=== PATIENT | female | born 1935 | race Caucasian/White ===

== ENCOUNTER 2021-05-22 12:46 | Inpatient (IN) | payer MEDICARE, SELFPAY ==
[2021-05-22] VITALS (48 sets, daily range): BP systolic 58–162; BP diastolic 13–91; PULSE 54–153; RESP 10–37; TEMP 34.1–36.2; O2SAT 71–100
--- NOTE | ~2021-05-22 | XR_ITS ---
XR abdomen NG/feed tube insert INDICATION: Evaluate NG tube position. TECHNIQUE: Limited KUB perform for evaluating NG tube . COMPARISON: No prior studies for comparison. FINDINGS: NG tube tip in the stomach. Visualized bowel gas pattern is unremarkable. IMPRESSION: 1: NG tube tip in the stomach. Reviewed, dictated and finalized at location A.
--- NOTE | ~2021-05-22 | CT_ITS ---
EXAMINATION: CTA chest PE abdomen pel DATE: 05/22/2021 14:54 CDT INDICATION: Chest and back pain TECHNIQUE: Computed tomography (CT) of the chest, abdomen, and pelvis was performed with 100 cc Omnip aque 350 intravenous contrast. The dose-length product was 314.13 mGy-cm. Automated exposure control and iterative reconstruction technique were employed. COMPARISON: None FINDINGS: CHEST CT: Study is technically adequate without evidence for pulmonary embolism. Heart size normal. Small bilat eral pleural effusions. No thoracic lymphadenopathy. There is atherosclerosis of the aorta without an eurysm. No endobronchial lesions. There is dependent as well as right middle lobe and lingular atelec tasis. No focal pneumonia. Cardiomegaly. ABDOMEN/PELVIS CT: The liver is diffusely heterogeneous without discrete mass. Gallbladder is present. Small amount of a scites. No free air. Nonobstructive bowel gas pattern. No lymphadenopathy. No evidence for abdominal aortic dissection or aneurysm. Mild wedge compression deformity of a midthoracic vertebra. Mild thora cic spondylosis. Accentuated thoracic kyphosis. IMPRESSION: 1. No evidence for pulmonary embolism. 2: Small pleural effusions with dependent atelectasis. 3: Small volume of ascites. Heterogeneous liver has nonspecific. Reviewed, dictated and finalized at location A.
--- NOTE | ~2021-05-22 | XR_ITS ---
EXAMINATION: XR chest port-a-cath/central EXAM DATE: 05/22/2021 23:11 INDICATION: Central line placement. TECHNIQUE: Portable AP frontal chest x-ray was obtained. Comparison is made to prior examination from 05/22/2021. FINDINGS: There is a new right-sided central line, tip projecting over the SVC. The endotracheal tub e appears to have somewhat retracted compared to prior study, is about 8 cm above the lia (previou sly about 5). There is a nasogastric tube seen with tip collimated off the study, but below the left hemidiaphragm. There is diffuse right lung and left lower lobe edema and/or pneumonia, mild interval progression. P robable small bilateral pleural effusions. Interval development of small right apical pneumothorax, about 2.0 cm between the pleural reflections at the apex. Cardiomediastinal silhouette is normal. T he bones and soft tissues are unremarkable. IMPRESSION: 1. Endotracheal tube 8 cm above the lia, could be safely advanced 3 cm. 2. New small right apical pneumothorax. 3. Diffuse edema and/or pneumonia, some progression. STAT Rad radiologist phoned, discussed this case with clinician as per documentation in their report, which was faxed and scanned into PACS with this exam. I called to discuss findings with ICU at 05/23 08:27 CDT. Reviewed, dictated and finalized at location A. IMPRESSION: 1. Endotracheal tube 8 cm above the lia, could be safely advanced 3 cm. 2. New small right apical pneumothorax. 3. Diffuse edema and/or pneumonia, some progression. STAT Rad radiologist phoned, discussed this case with clinician as per document ation in their report, which was faxed and scanned into PACS with this exam. I called to discuss findings with ICU at 05/23/2021 08:27 CDT.
--- NOTE | ~2021-05-22 | XR_ITS ---
XR chest ET placement 05/22/2021 15:20 Indication: Respiratory distress. Procedure: AP portable chest Comparison: CT dated 05/22/2021 Findings: Endotracheal tube tip 4.8 cm above the lia. NG tube in the stomach. Cardiomegaly. There has been interval development of pulmonary edema. Left basilar atelectasis. Small left pleural effusi on. Impression: 1: Interval development of pulmonary edema since recent CT. Reviewed, dictated and finalized at location A. Impression: 1: Interval development of pulmonary edema since recent CT.
--- NOTE | 2021-05-22 13:09 | ECG_ITS ---
Measurements Intervals [place] Rate: 152 P: [place]: 0 QRS: -13 QRSD: 132 T: 189 QT: 285 QTc: 454 Interpretive Statements ATRIAL FLUTTER/TACHYCARDIA WITH RAPID VENTRICULAR RESPONSE LEFT BUNDLE BRANCH BLOCK ABNORMAL ECG Electronically Signed On 05-22-2021 15:45:37 CDT by Alfonzo Gibbons D.O.
[2021-05-22 13:26] LABS: Basophils Percent Auto 0.4 % (0.2-1.2); Hematocrit 42.3 % (37.0-47.0); Hemoglobin 14.1 g/dL (12.0-15.0); Immature Granulocyte Absolute 0.04 K/mm3 (0.00-0.031); Immature Granulocyte Percent A 0.4 % (0-0.5); Lymphocytes Absolute Auto 1.34 K/mm3 (0.9-3.2); Lymphocytes Percent Auto 13.2 % (18.3-44.2); Mean Corpuscular HGB Conc 33.3 g/dl (32-36); Mean Corpuscular Hemoglobin 31.3 pg (26-34); Mean Platelet Volume 10.2 fl (7.4-10.4); Monocytes Absolute Auto 0.9 K/mm3 (0.1-0.6); Monocytes Percent Auto 8.9 % (2.6-8.5); Neutrophils Absolute Auto 7.8 K/mm3 (1.3-6.7); Neutrophils Percent Auto 77.1 % (45.5-73.1); Platelet Count Result 188 k/mm3 (150-375); Red Cell Distribution Width 14.9 % (11.5-14.5); White Blood Count 10.2 K/mm3 (4.5-10.0)
[2021-05-22 13:39] LABS: Anion Gap 14 mmol/L (8-16); Blood Urea Nitrogen 31 mg/dL (7-17); Calcium 9.9 mg/dL (8.4-10.2); Carbon Dioxide 20 mmol/L (22-30); Chloride 96 mmol/L (98-107); Estimated CRCL calculation 30 ml/min; Estimated Glomerular Filt Rate 60; Glucose 124 mg/dL (65-110); Potassium 5.1 mmol/L (3.4-5.0); Sodium 130 mmol/L (137-145)
[2021-05-22 13:53] LABS: NT Pro B Type Natriuretic Pept 26700 pg/mL (5-100)
[2021-05-22 13:54] LABS: Add Urine Microscopic? YES; Appearance Urine Clear (Clear); Bacteria Urine Trace /hpf; Bilirubin Urine Negative (Negative); Blood Urine Negative (Negative); Color Urine Amber (Yellow); Glucose Urine UA Negative (Negative); Hyaline Casts Urine 15-19 /lpf; Ketones Urine 1+ mg/dL (Negative); Leukocyte Esterase Ur 1+ LEU/UL (Negative); Mucus Urine Rare /lpf; Nitrate Urine Negative (Negative); Protein Urine 2+ mg/dL (Negative); Specific Grav Ur 1.026 (1.001-1.035); Squamous Epithelial Cell Urine Moderate /hpf (Few); Transitional Epi Cells Urine Rare /hpf (None Seen)
[2021-05-22] MEDS: METOPROLOL TARTRATE INJ 5 MG/5 ML VIAL IV PUSH ×2 (14:16→14:26)
[2021-05-22] MEDS: LACTATED RINGERS 1,000 ML 150 ML IV CONT (14:16)
[2021-05-22] MEDS: ASPIRIN 81 MG CHEWABLE TABLET 324 MG PO (14:17)
--- NOTE | 2021-05-22 14:19 | PC.NURSE ---
called lab and talked to Elena at 1418 added on a D dimer
[2021-05-22 14:44] LABS: D Dimer 2.13 ug/mL (<0.48)
--- NOTE | 2021-05-22 14:55 | PC.NURSE ---
ERP ordered 1mg of atropine IVP via verbal order readback due to bradycardia.
[2021-05-22 14:56] LABS: Base Excess ABG -6.3 mEq/l (+/-2.0); Carboxyhemoglobin 0.5 % THb (0-2.0); Fractional Inspired Oxygen 100 %; HCO3 ABG 13.6 mEq/l (22.0-26.0); Methemoglobin ABG 0.2 %THb (0-1.5); Oxygen Content ABG 18.9 %vol (16.0-22.0); Oxygen Saturation ABG 99.9 % (95.0-100.0); Oxyhemoglobin 98.6 % THb (90.0-100.0); PO2 ABG 421.6 mmHg (80.0-100.0); PO2 FiO2 Ratio Arterial Blood 4.22 %; Reduced Hemoglobin 0.7 %THb (0-5.0); Total Hemoglobin 12.8 g/dL (12.0-18.0)
[2021-05-22 14:57] LABS: Device NON-REBREATHER MASK; Modified Allen's Test Unable to perform; PCO2 ABG 16.4 mmHg (35.0-45.0); Site Drawn LEFT RADIAL; pH ABG 7.537 (7.350-7.450)
--- NOTE | 2021-05-22 14:57 | PC.NURSE ---
LR fluids opened at bolus rate due to hypotension and absent radial pulses. ERP aware.
--- NOTE | 2021-05-22 14:58 | PC.NURSE ---
Patient being bagged at this time, heart rate noted to be 42 and atropine given IVP at this time per Dr. Cotto.
--- NOTE | 2021-05-22 14:59 | PC.NURSE ---
Addendum entered by Alvin Beckwith RN 05/22/21 16:23: HR instead of [place] Original Note: CPR started at this time for [place] of 25.
--- NOTE | 2021-05-22 15:00 | PC.NURSE ---
CPR stopped at this time, pulse rate noted to be 108.
--- NOTE | 2021-05-22 15:01 | PC.NURSE ---
Etomidate 10 mg (5ml) given IVP at this time verbal order Dr. Cotto along with succinylcholine 100 mg(5ml) . Dr oCtto at bedside at this time and intubated using 7.0 ET tube placed 20 at lip at this time.
--- NOTE | 2021-05-22 15:07 | PC.NURSE ---
Patient has color change using CO2 and lung sounds heard bilaterally per Dr. Cotto.
--- NOTE | 2021-05-22 15:08 | PC.NURSE ---
NG placed at this time in right nare at 65, auscultation heard over epigastric area.
--- NOTE | 2021-05-22 15:35 | WPDHPUPDATE1 ---
History and Physical Update Update Date/Time: 05/22/21 4110 History and Physical has been reviewed, including an updated exam of the patient. There are NO changes in the patient's condition. Risks, benefits, and alternatives have been discussed and questions answered. Patient agrees to proceed with procedure.
[2021-05-22 15:36] LABS: Alveolar/Arterial O2 Gradient 362.6 mmHg; Base Excess ABG -14.7 mEq/l (+/-2.0); Carboxyhemoglobin 0.3 % THb (0-2.0); Fractional Inspired Oxygen 70 %; HCO3 ABG 12.4 mEq/l (22.0-26.0); Methemoglobin ABG 0.2 %THb (0-1.5); Oxygen Content ABG 16.1 %vol (16.0-22.0); Oxygen Saturation ABG 96.2 % (95.0-100.0); Oxyhemoglobin 94.5 % THb (90.0-100.0); PCO2 ABG 33.6 mmHg (35.0-45.0); PO2 ABG 100.4 mmHg (80.0-100.0); PO2 FiO2 Ratio Arterial Blood 1.43 %
[2021-05-22 15:37] LABS: Arterial Blood Gas PEEP 5 cmH2O; Arterial Blood Gas Tidal Volume 300 ml; Arterial Blood Gas Vent Mode CMV; Arterial Blood Gas Ventilator rate 12 /MIN; Device VENTILATOR; Site Drawn RIGHT BRACHIAL; pH ABG 7.186 (7.350-7.450)
--- NOTE | 2021-05-22 15:53 | ECG_ITS ---
Measurements Intervals [place] Rate: 115 P: 130 [place]: 116 QRS: 254 QRSD: 132 T: 228 QT: 348 QTc: 483 Interpretive Statements ATRIAL FLUTTER WITH RAPID VENTRICULAR RESPONSE LEFT BUNDLE BRANCH BLOCK BASELINE ARTIFACT- I, II, III, AVR, AVL, AVF, V1-V6 ABNORMAL ECG Electronically Signed On 05-22-2021 18:35:08 CDT by Alfonzo Gibbons D.O.
--- NOTE | 2021-05-22 15:53 | ECG_ITS ---
Measurements Intervals [place] Rate: 60 P: [place]: 0 QRS: -10 QRSD: 122 T: 258 QT: 509 QTc: 511 Interpretive Statements ATRIAL FLUTTER LEFT BUNDLE BRANCH BLOCK BASELINE ARTIFACT- I, II, III, AVR, AVL, AVF, V2-V6 ABNORMAL ECG Electronically Signed On 05-22-2021 18:33:43 CDT by Alfonzo Gibbons D.O.
--- NOTE | 2021-05-22 15:58 | PCRCNOTE ---
RAPID RESPONSE CALLED IN CT ROOM 1 FOR PT UNRESPONSIVE. PT TAKEN BACK TO ED AND PLACED ON NRB, ABG DRAWN. PT INTUBATED WITH 7.0 ETT PLACED 20CM AT THE LIP. PT WAS THEN TRANSPORTED TO [facility] VIA VENTILATOR.
--- NOTE | 2021-05-22 16:16 | PC.NURSE ---
1446, rapid response called in CT scanner for this patient. After Ct was complete, pt. went unresponsive, HR went from 154 to 60, patient pale, cool, agonal. Pt. brought back to room. ERP notified and aware. Pt. is currently being ventilated via BVM, paddles attached to patient's chest.
--- NOTE | 2021-05-22 16:47 | ED.NAVMDI ---
HPI - Nausea/Vomiting/Diarrhea General Chief complaint: Nausea/Vomiting/Diarrhea Stated complaint: back pain, nausea Time Seen by Provider: 05/22/21 13:54 Source: patient and family Mode of arrival: ambulatory Limitations: no limitations History of Present Illness HPI Narrative: 85-year-old female Generally healthy, takes no medications, and has been quite a while since she has seen her physician Brought to the ED today by her daughter who notes that she has been not herself for a couple of weeks They have noted that decreased activity, poor appetite with decreased food intake although she is continue to take fluids fine, and complaints of nausea almost every day, and some modest pain in her right side 4 days ago she had an episode of moderately severe pain in her upper back which radiated into both arms but did resolve and has not returned There were no new symptoms noted today, her daughter was just concerned that she is seem to be ill for an extended period of time At triage the patient was very tachycardic but she was unaware of this or any sensation of palpitations Related Data Allergies Allergy/AdvReac Type Severity Reaction Status Date / Time No Known Allergies Allergy Verified 05/22/21 14:15 Review of Systems Review of Systems: All systems reviewed & are unremarkable except as noted in HPI and below Constitutional: Constitutional: Reports no additional constitutional complaints, Denies chills, Reports fatigue, Denies fever(s), Denies headache(s) and Reports weakness Eyes: Eyes: Reports no additional eye complaints and Denies change in vision ENT: Denies headache(s) and Denies sore throat Cardiovascular: Cardiovascular: Denies chest pain, Reports radiating jaw, neck or arm pain and Denies dyspnea Respiratory: Respiratory: Denies cough and Denies dyspnea Gastrointestinal: Gastrointestinal: Denies abdominal pain, Denies diarrhea, Reports nausea and Denies vomiting Comments: Poor appetite Genitourinary: Genitourinary: Denies urinary frequency and Denies dysuria Musculoskeletal: Musculoskeletal: Reports back pain, Denies deformity, Denies arthralgias, Denies joint swelling and Denies numbness Integumentary/Breasts: Skin/Breast: Denies rash and Denies wounds Neurologic: Denies headache(s), Denies focal weakness, Denies numbness and Reports weakness Psychiatric: Psychiatric: Reports no additional psychiatric complaints Endocrine: Endocrine: Reports no additional endocrine complaints Hematologic/Lymphatic: Hematologic/Lymphatic: Reports no additional hematologic/lymphatic complaints Allergic/Immunologic: Allergic/Immunologic: Reports no additional allergic/immunologic complaints Exam Const: General: cooperative, no acute distress and alert Orientation/consciousness: patient oriented x3 (alert) Other: Frail, elderly HENMT: Head: normal to inspection, normocephalic and atraumatic Ears: external ears normal General nose exam: no epistaxis Eyes: Conjunctivae: conjunctivae normal EOM: EOMs intact bilaterally Neck: Neck: normal visual inspection, supple and no JVD Resp: Effort & Inspection: normal respiratory effort, not labored and tachypneic Auscultation: clear to auscultation bilaterally, no rales, no rhonchi, no wheezes and other (BS =) Cardio: Rate: regular rate and tachycardic Rhythm: regular rhythm Heart sounds: no murmurs GI: GI Palp: Yes Soft to palpation, No Tenderness to palpation present (GI) and No Guarding due to palpation present (GI) Skin: General skin exam: normal color and no rashes or lesions noted Neuro: General: patient oriented x3 (alert) and moves all extremities Extrem: General: normal to inspection and no pedal edema Psych: Affect: normal affect Course Course Emergency Course: Very high BNP atrial flutter was treated with metoprolol instead of diltiazem She was effectively unchanged after 2 doses and proceeded to CT scan While there she blocked down and became
[2021-05-22 17:44] LABS: Activated Clotting Time 274 sec (74-137)
--- NOTE | 2021-05-22 18:07 | WPDMODSED ---
Moderate Sedation Note-Pt Data Patient Data Allergies Allergy/AdvReac Type Severity Reaction Status Date / Time No Known Allergies Allergy Verified 05/22/21 14:15 Current Medications: Active Medications Lactated Ringer's (Lr - Lactated Ringers Iv) 1,000 mls @ 150 mls/hr IV CONT .Q6H40M STA Stop: 05/22/21 20:46 Last Infusion: 05/22/21 15:20 Dose: Infused Documented by: Norepinephrine Bitartrate (Levophed 8 Mg/D5w 250 Ml) 8 mg in 250 mls @ 9.375 mls/hr IV CONT .[id number] JD Metoprolol Tartrate (Metoprolol Tartrate Inj 5 Mg/5 Ml Vial) 5 mg IV PUSH Q5MIN PRN PRN Reason: hr>100 Last Admin: 05/22/21 14:26 Dose: 5 mg Documented by: Sedation/Anesthesia: No previous sedation/anesthesia problems (including family history). Mod Sed Physical Exam Physical Exam Pre Procedural Exam: Normal: Appearance, Eyes, Ears, Nose, Neck, Throat, Airway, Lungs (Intubated), Heart Size, Heart Rate, Heart Rhythm, Neuro Exam, Abdomen, Liver, Kidneys, Spleen, Breasts, Genitalia, Extremities and Skin Hours since solid foods: 8 Hours since liquid intake: 8 Mallampati Classification: class 1 Internal Medicine - PN: Obj Da Vital Signs Vital Signs: Vital Signs - 24 hr 05/22/21 12:49 05/22/21 13:31 05/22/21 13:32 Temperature 36.2 C L Pulse Rate 152 H 151 H 152 H Respiratory Rate 18 29 H 27 H Blood Pressure 122/66 124/78 124/78 Pulse Oximetry 98 98 100 05/22/21 13:45 05/22/21 13:46 05/22/21 14:00 Temperature Pulse Rate 152 H 152 H 153 H Respiratory Rate 25 H 30 H 21 H Blood Pressure 118/75 Pulse Oximetry 98 05/22/21 14:01 05/22/21 14:15 05/22/21 14:16 Temperature Pulse Rate 152 H 152 H 152 H Respiratory Rate 32 H 26 H 24 H Blood Pressure 118/80 107/72 Pulse Oximetry 98 99 05/22/21 14:17 05/22/21 14:26 05/22/21 14:30 Temperature Pulse Rate 153 H 148 H 146 H Respiratory Rate 22 H 19 22 H Blood Pressure 110/70 111/83 Pulse Oximetry 98 98 98 05/22/21 14:31 05/22/21 14:48 05/22/21 14:49 Temperature Pulse Rate 58 L Respiratory Rate 34 H Blood Pressure 110/68 83/56 L Pulse Oximetry 98 88 L 88 L 05/22/21 14:57 05/22/21 15:00 05/22/21 15:01 Temperature Pulse Rate 54 L 109 H 108 H Respiratory Rate 24 H 29 H 36 H Blood Pressure 62/35 L 85/68 L Pulse Oximetry 87 L 90 05/22/21 15:04 05/22/21 15:08 05/22/21 15:10 Temperature Pulse Rate 93 79 114 H Respiratory Rate 28 H 10 L 19 Blood Pressure 104/91 H 99/69 L 98/67 L Pulse Oximetry 90 90 05/22/21 15:11 05/22/21 15:15 05/22/21 15:16 Temperature Pulse Rate 118 H 116 H 115 H Respiratory Rate 23 H 19 16 Blood Pressure 98/67 L 116/84 Pulse Oximetry 98 98 98 05/22/21 15:27 05/22/21 15:28 05/22/21 15:30 Temperature Pulse Rate 114 H 118 H 118 H Respiratory Rate 32 H 27 H Blood Pressure 140/77 Pulse Oximetry 98 99 Intake/Output Intake/Output: Intake & Output 05/19/21 05/20/21 05/21/21 05/22/21 23:59 23:59 23:59 23:59 Intake Total 1000 Balance 1000 Meds/Results Medications: Active Medications Generic Name Dose Route Start Last Admin Trade Name Kerrie PRN Reason Stop Dose Admin Lactated Ringer's 1,000 mls @ 150 mls/hr 05/22/21 14:07 05/22/21 15:20 Lr - Lactated Ringers Iv IV CONT 05/22/21 20:46 Infused .Q6H40M STA Infusion Norepinephrine Bitartrate 8 mg in 250 mls @ 9.375 mls/hr 05/22/21 15:40 Levophed 8 Mg/D5w 250 Ml IV CONT .[id number] JD 5 MCG/MIN Metoprolol Tartrate 5 mg 05/22/21 14:05 05/22/21 14:26 Metoprolol Tartrate Inj 5 Mg/5 Ml Vial IV PUSH 5 mg Q5MIN PRN Administration hr>100 Radiology Results: ITS Impressions Chest/Abdomen/Pelvis CTA 05/22/21 14:54 IMPRESSION: 1. No evidence for pulmonary embolism. 2: Small pleural effusions with dependent atelectasis. 3: Small volume of ascites. Heterogeneous liver has nonspecific. Abdomen X-Ray 05/22/21 15:21 IMPRESSION: 1: NG tube tip in the stomach.
--- NOTE | 2021-05-22 18:08 | PM.CNCAR ---
Assessment and Plan Additional Plan 1- NSTEMI 2- cardiogenic shock 3- AFib with RVR this is a 85-year-old female was brought into the hospital with 2 week history of intermittent bilateral arm pain. Her troponins elevated 37, she was in a flutter with RVR. She had episode of unresponsive with associating CPR for few minutes and down in the emergency room. She got intubated after that because of pulmonary edema. She was rushed to the nursery laborer and we identified that the LAD was totally occluded at the ostium. Her ejection fraction is 15% with global hypokinesis. Poor collaterals from the RCA to the LAD. patient had PEA arrest again in the nursery laborer and has CPR for 5 minutes. she is not moving despite not giving any sedation now. we managed to open the LAD using stent 3 x 33 drug-eluting stent. Continue hemodynamic support using the Impella. currently still on Levophed 15 mics continue aspirin and Brilinta. will be moved to the ICU where I will discuss hypothermia protocol with the ICU attending. overall poor prognosis. complex case total time spent here was 140 minutes. long discussion with the daughter about the procedure before and after the procedure. management of Impella in the nursery laborer. anginal event of cardiogenic shock and CPR History of Present Illness History of Present Illness Consult date/time: 05/22/21 18:08 Requesting physician: Jn Oleary MD Consult reason: congestive heart failure Reason For Visit: back pain, nausea Narrative: this is a 85-year-old with no significant past history who was experiencing a couple weeks of intermittent back pain, arm pain who was brought into the ER by her daughter because of shortness of breath, nausea vomiting. Apparently the initial EKG shows atrial flutter with heart rate 150 beats per. She was given IV metoprolol. Re-evaluation for the EKG shows atrial flutter but poor R-wave progression left bundle branch block. Patient was given 1 L IV Ringer lactate. She was sent down to the CT scan and there were she had become unresponsive and CPR was given. She came back to the emergency room where she was intubated. I was called to see her because of elevated troponins 37, cardiogenic shock. Her brain atretic peptide is very high. Chest x-ray suggestive of pulmonary edema. His daughter was on the bedside which I discussed risks and benefits of cardiac catheterization she agreed to proceed. Serum creatinine 0.9, troponin 37, Review of Systems Review of Systems: ROS unobtainable: Yes unobtainable due to endotracheal tube Cardiovascular: Cardiovascular: Reports palpitations Comments: bilateral arm pain, back pain Gastrointestinal: Gastrointestinal: Reports nausea and Reports vomiting PMFSH Past Medical History Medical History (Updated 05/22/21 @ 18:12 by Gregory Cueavs MD) No known health problems Surgical History Surgical History (Updated 05/22/21 @ 18:12 by Gregory Cuevas MD) No history of previous surgery Social History Social History (Updated 05/22/21 @ 18:13 by Gregory Cuevas MD) Smoking status: Never smoker Second hand tobacco smoke exposure: No Alcohol intake: never Meds Home Medications and Allergies Allergies Allergy/AdvReac Type Severity Reaction Status Date / Time No Known Allergies Allergy Verified 05/22/21 14:15 Vital Signs Vital Signs - 24 hr 05/22/21 12:49 05/22/21 13:31 05/22/21 13:32 Temperature 36.2 C L Pulse Rate 152 H 151 H 152 H Respiratory Rate 18 29 H 27 H Blood Pressure 122/66 124/78 124/78 Pulse Oximetry 98 98 100 05/22/21 13:45 05/22/21 13:46 05/22/21 14:00 Temperature Pulse Rate 152 H 152 H 153 H Respiratory Rate 25 H 30 H 21 H Blood Pressure 118/75 Pulse Oximetry 98 05/22/21 14:01 05/22/21 14:15 05/22/21 14:16 Temperature Pulse Rate 152 H 152 H 152 H Respiratory Rate 32 H 26 H 24 H Blood Pressure 118/80 107/72 Pulse Oximetry 98 99 05/22/21 14:17 0
--- NOTE | 2021-05-22 18:21 | WPDCARDPROC ---
Cardiac Cath Procedure Note Date of procedure:: 05/22/21 Performing physician:: Gregory Cuevas MD date of service May 22, 2021 Indication:: NSTEMI, cardiogenic shock Procedure Procedure performed:: 1-Moderate sedation that started at 1558 pm and ended at 1800 10 mg of propofol. The registered nurse was michelle melvin. 2-Selective left and right coronary angiogram. 3-Left heart catheterization with measurement of LVEDP and measurement of gradient across aortic valve. 4- LV angiogram. 5- insertion into the ventricular assist device Impella through right femoral approach. 6- balloon angioplasty and stenting of the LAD using 3 x 33 drug-eluting stent. LAD was totally occluded with RANDALL flow 0. 7-Right common femoral arterial angiogram. 8-Deployment of 6 [place] Angio-Seal. Sedation/Medication given:: Moderate sedation. Access site:: Right common femoral artery. Estimated blood loss:: 10cc Procedure note:: After informed consent patient was brought in to laboratory equipment installer with the was draped and prepped in usual manner. Moderate sedation was given and the right groin was infiltrated using 1% lidocaine. Five Azerbaijani sheath was obtained using micropuncture needle and the modified Seldinger technique. Selective left coronary angiogram was done using JL4 catheter with the tip of the catheter placed in the left main coronary artery. Selective right coronary angiogram was done using JR4 catheter with the tip of the catheter placed to the right coronary artery. this time I took 6 Azerbaijani guide catheter Q 4 and engage the left main and then a Production Sanitizer 150 wire which managed to cross the LAD. At that time patient went into PA arrest. CPR done for about 5 minutes giving epinephrine. Patient had faith of circulation. After that 5 Azerbaijani pigtail catheter was advanced across the aortic valve into the left ventricle with measurement of LVEDP and measurement of gradient across aortic valve. LV angiogram was done as well. Right common femoral arterial angiogram was done. Subsequently decided to place an Impella and therefore the Impella sheath was placed in the right femoral artery. Impella was placed across the aortic valve. It was in great position. After that a punctured Impella sheath and put a 6 Azerbaijani sheath. Guide catheter Q 4 was advanced again and engaged the left main and Production Sanitizer 150 wire was advanced and managed to cross successfully to the distal LAD. I used initially 2.5 x 15 balloon with several inflations at the ostium proximally but I could not advance beyond mid portion. At that time it took 1.5 balloon by 12 and inflated it in te mid segment the 14 RANDELL for 25 seconds. After that balloon ruptured. Took another 1.5 balloon by 15 and managed to inflated midportion under 14 atmospheres for 25 seconds. I took then after that a 2.5 x 15 noncompliant several times in the proximal midportion. Subsequently 3 0 x 15 noncompliant balloon was inflated again at the ostial, proximal and midportion. Then deployed a drug-eluting stent 3 x 33 comparing the ostial, proximal and midportion of pressure for 25 seconds. the LAD distal to the stent looks small and atretic and therefore was under filled and we accepted the results. Findings:: 1- left coronary artery and has minimal irregularities. 2- left anterior descending artery is Totally occluded at the ostium evidence of calcification. 3- leftcircumflex artery is a large artery And has in the mid segment 50%. Proximal medium size OM that has diffuse irregularities. 4- right coronary artery is Medium in size and has ostial 50% and diffuse irregularities and then right posterolateral branch there is about 90%. Right to left collaterals which are faint. 5- LVEDP was 40 mm Hgand no gradient across aortic valve. 6- opening arterial pressure was 100/60 and closing pressure was 100/70 7- right femoral artery angiogram shows no significant disease in the right common femoral artery. Conclusion:: 1- cardiogenic shock. 2-
[2021-05-22 20:23] LABS: Basophils Absolute Auto 0.1 K/mm3 (0.0-0.1); Basophils Percent Auto 0.3 % (0.2-1.2); Eosinophils Percent Auto 0.1 % (0-4.4); Hematocrit 28.8 % (37.0-47.0); Hemoglobin 8.8 g/dL (12.0-15.0); Immature Granulocyte Absolute 0.37 K/mm3 (0.00-0.031); Immature Granulocyte Percent A 2.1 % (0-0.5); Immature Platelet Fraction Pct 5.2 % (0.9-11.2); Lymphocytes Absolute Auto 0.86 K/mm3 (0.9-3.2); Lymphocytes Percent Auto 4.9 % (18.3-44.2); Mean Corpuscular HGB Conc 30.6 g/dl (32-36); Mean Corpuscular Hemoglobin 31.4 pg (26-34); Mean Corpuscular Volume 102.9 fl (80-100); Mean Platelet Volume 10.4 fl (7.4-10.4); Monocytes Absolute Auto 0.9 K/mm3 (0.1-0.6); Monocytes Percent Auto 5.1 % (2.6-8.5); Neutrophils Absolute Auto 15.5 K/mm3 (1.3-6.7); Neutrophils Percent Auto 87.5 % (45.5-73.1); Nucleated Red Blood Cells Absolute Auto 0.1 K/mm3 (0.0-0.012); Nucleated Red Blood Cells Perc 0.3 % (0.0-0.2); Platelet Count Result 137 k/mm3 (150-375); Red Cell Distribution Width 14.6 % (11.5-14.5); White Blood Count 17.7 K/mm3 (4.5-10.0)
[2021-05-22] MEDS: VASOPRESSIN INJ 100 UNITS in DEXTROSE 5% 95 ML IV CONT (20:25)
[2021-05-22] MEDS: NOREPINEPHRINE 8 MG/D5W 250 ML 8 MG/250 ML BAG 56.25 MG IV CONT ×2 (20:27→22:40)
[2021-05-22 20:41] LABS: Lactic Acid Reflex 10.7 mmol/L (0.7-2.1)
[2021-05-22 20:42] LABS: Anion Gap 16 mmol/L (8-16); Blood Urea Nitrogen 26 mg/dL (7-17); Calcium 6.9 mg/dL (8.4-10.2); Carbon Dioxide 8 mmol/L (22-30); Chloride 102 mmol/L (98-107); Estimated CRCL calculation 23 ml/min; Estimated Glomerular Filt Rate 43; Glucose 89 mg/dL (65-110); Potassium 6.1 mmol/L (3.4-5.0); Sodium 126 mmol/L (137-145)
[2021-05-22] MEDS: SODIUM BICARBONATE 8.4% 50 MEQ/50 ML SYRINGE 100 MEQ IV PUSH ×2 (21:02→22:11)
[2021-05-22] MEDS: SODIUM CHLORIDE 0.9% IV 1,000 ML 999 ML IV CONT ×2 (21:08→23:21)
[2021-05-22 22:01] LABS: Base Excess ABG -14.9 mEq/l (+/-2.0); Carboxyhemoglobin 0.1 % THb (0-2.0); Fractional Inspired Oxygen 100 %; HCO3 ABG 12.4 mEq/l (22.0-26.0); Methemoglobin ABG 0.5 %THb (0-1.5); Oxygen Content ABG 11.2 %vol (16.0-22.0); Oxygen Saturation ABG 97.9 % (95.0-100.0); Oxyhemoglobin 96.1 % THb (90.0-100.0); PCO2 ABG 34.8 mmHg (35.0-45.0); PO2 ABG 131.2 mmHg (80.0-100.0); PO2 FiO2 Ratio Arterial Blood 1.31 %; Reduced Hemoglobin 3.3 %THb (0-5.0); Total Hemoglobin 8.1 g/dL (12.0-18.0)
[2021-05-22 22:04] LABS: Arterial Blood Gas PEEP 10 cmH2O; Arterial Blood Gas Vent Mode CMV; Arterial Blood Gas Ventilator rate 20 /MIN; Device VENTILATOR; Site Drawn ARTLINE; pH ABG 7.171 (7.350-7.450)
[2021-05-22 22:05] LABS: Arterial Blood Gas Tidal Volume 300 ml
[2021-05-22] MEDS: DEXTROSE 50% 25 GM/50 ML SYRINGE IV PUSH (22:24)
[2021-05-22] MEDS: INSULIN HUMAN REGULAR (*BKC) 100 UNITS/ML 10 UNITS IV PUSH (22:26)
[2021-05-22] MEDS: CALCIUM GLUCONATE 1,000 MG/10 ML VIAL 1000 MG IV PUSH (22:33)
[2021-05-22] MEDS: CENTRAL LINE FLUSH 10 ML IV PUSH (22:42)
[2021-05-22] MEDS: EPINEPHrine INJ 1 MG in DEXTROSE 5% IN WATER 250 ML 15.06 MG IV CONT (23:11)
[2021-05-22 23:18] LABS: Reflex Lactic Acid Yes or No Add Lactic
--- NOTE | 2021-05-22 23:37 | WPDPROCEDUR ---
Procedures Central Line Placement Right IJ: Central Line Date: 05/22/21 Central Line Time: 21:44 Discussed w/ the patient/family/POA,the placement of a central venous catheter, including its clinical necessity/indication & associated potential risks, benifits and alternatives.: Yes The patient/family/POA understand(s) and acknowledge(s) the need to proceed with central venous catheter insertion as an important element of the patient's clinical management.: Yes Time Out Performed: Yes Patient Position: other Patient placed on monitor/pulse ox: Yes Provider Prep: mask, sterile gown, sterile gloves, Max. sterile barrier precautions, cap and hand hygiene with conventional soap/water or alcohol based hand rub Central line prep: 2% Chlorhexidine scrub and sterile full body sheet applied Sterile US Technique with sterile gel/sterile probe covers: Yes Central line lumen inserted: triple Beninese: 7 Length (cm): 16 Depth of Insertion (cm): 14 Post Procedure: sutured in place, good blood return, all ports aspirated, flushed, capped, transparent dressing, hemostatic product and aseptic technique maintained throughout procedure Post procedure x-ray: tip of catheter in good position Patient tolerated procedure: well Complications: pneumothorax (Pneumothorax noted on both imaging however pneumothorax likely present due to prior CPR.) Additional comments: 20% right pneumothorax with moderate right pleural effusion
--- NOTE | 2021-05-22 23:41 | P.PCNBED_ITS ---
Procedures Arterial Line Arterial Line Date: 05/22/21 Arterial Line Time: 20:50 Discussed with the patient/family/POA, the placement of an arterial catheter, including its clinical necessity/indication and associated potential risks, benefits and alternatives.: Yes Patient/family/POA and/or understands and acknowledges the need to proceed with the arterial catheter insertion as an important element of the patient's clinical management.: Yes Time Out Performed: Yes Patient Position: other Circulating Process Inspector Prep: sterile gown, sterile gloves, mask and hat Site: left Site Prep: chlorhexidine Skin Anesthesia: 1% lidocaine Technique used: ultrasound-guided Size (Gauge): 20 Length: 12 cm Closure/Dressing: suture and transparent dressing Patient tolerated procedure: well Complications: excessive bleeding Additional comments: Patient had persistent oozing from puncture site. Was unable to apply securement product as the patient was having continuous oozing and was unable to achieve a dry site for administration.
--- NOTE | 2021-05-22 23:50 | PM.IMCN ---
Assessment and Plan Assessment and plan (1) ST elevation (STEMI) myocardial infarction: Qualifiers: Involved coronary artery: LAD coronary artery Qualified Code(s): I21.02 - ST elevation (STEMI) myocardial infarction involving left anterior descending coronary artery Code(s): I21.3 - ST elevation (STEMI) myocardial infarction of unspecified site Status: Acute (2) Cardiogenic shock: Code(s): R57.0 - Cardiogenic shock Status: Acute (3) Acute renal failure: Qualifiers: Acute renal failure type: unspecified Qualified Code(s): N17.9 - Acute kidney failure, unspecified Code(s): N17.9 - Acute kidney failure, unspecified Status: Acute (4) Acute hyperkalemia: Code(s): E87.5 - Hyperkalemia Status: Acute (5) DIC (disseminated intravascular coagulation): Code(s): D65 - Disseminated intravascular coagulation [defibrination syndrome] Status: Acute (6) Acute anemia: Code(s): D64.9 - Anemia, unspecified Status: Acute (7) Atrial flutter with rapid ventricular response: Code(s): I48.92 - Unspecified atrial flutter Status: Acute (8) Multiple organ system failure: Status: Acute Additional Plan Patient has been admitted to the ICU following STEMI LAD occlusion resulting in cardiogenic shock and subsequent multi organ system failure with respiratory failure, DIC and acute renal failure. Patient is on Impella device and is on pressor therapy with Levophed, vasopressin and epinephrine. The patient was initially fluid responsive but recurrent hypotension currently. Patient has overwhelming metabolic acidosis due to above factors. His received total of 6 amps of bicarb pushes and has been started on a bicarb drip. She has been treated for hyperkalemia with insulin, dextrose, bicarb and calcium gluconate. She now has acute anemia likely secondary to her DIC. Has no external signs of bleeding but does have significant bruising from IJ site and has oozing from Impella insertion site, art line site and to a lesser extent IJ site. 2 units of packed red blood cells and 4 units of FFP have been ordered. Repeat DIC panel has been ordered for a.m.. I suspect the patient does have some shock liver hepatic panel has been ordered for a.m.. Stress ulcer prophylaxis with Protonix IV q.12 60 minutes has been spent in critical care activities in exclusion of procedures. Due to a high probability of clinically significant, life threatening deterioration, the patient required my highest level of preparedness to intervene emergently and I personally spent this critical care time directly and personally managing the patient. This critical care time included obtaining a history; examining the patient; pulse oximetry; ordering and review of studies; arranging urgent treatment with development of a management plan; evaluation of patient's response to treatment; frequent reassessment; and discussions with other providers. It was exclusive of separately billable procedures and treating other patients and teaching time. Please see Assessment and Plan section and the rest of the note for further information on patient assessment and treatment. Condition: Critical Prognosis: Extremely guarded/poor HPI Data of Consult Consult date: 05/22/21 Requesting Physician: Dr. Onur Chin Primary Care Provider: Low Rios DO Consult Narrative Narrative: Date and time of patient contact: 05/22/2021 at 9:00 p.m. Gina Dykes is a 85 year old female who had not seen a physician in many years and had no known past medical history presents to the ER with complaints of back pain and nausea. Her daughter brought her into the ER because patient was ?not herself? for a couple of weeks. She had had decreased active fatigue and poor appetite. Four days ago the patient developed severe upper back pain which radiated to both arms but resolved and did not return.
[2021-05-23] VITALS (22 sets, daily range): BP systolic 31–121; BP diastolic 25–81; PULSE 68–107; RESP 13–27; TEMP 32.3–33.8
[2021-05-23 00:02] LABS: Prothrombin Time 91.8 Seconds (11.1-14.7)
[2021-05-23 00:03] LABS: Partial Thromboplastin Time 139.6 SECONDS (22.3-36.8)
[2021-05-23 00:19] LABS: D Dimer 13.34 ug/mL (<0.48)
[2021-05-23 00:24] LABS: Fibrinogen 70 mg/dl (215-510)
[2021-05-23 00:24] LABS: Glucose Point of Care 257 mg/dl (65-105)
[2021-05-23 00:25] LABS: INR 12.8
[2021-05-23 00:27] LABS: Lactic Acid 16.4 mmol/L (0.7-2.1)
[2021-05-23] MEDS: SODIUM BICARBONATE 8.4% 150 MEQ in DEXTROSE 5% 1,000 ML 950 ML 50 MEQ IV CONT (00:51)
[2021-05-23] MEDS: SODIUM BICARBONATE 8.4% 50 MEQ/50 ML SYRINGE 100 MEQ IV PUSH (00:51)
[2021-05-23] MEDS: EPINEPHrine INJ 1 MG in DEXTROSE 5% IN WATER 250 ML 15.06 MG IV CONT (01:09)
[2021-05-23 02:22] LABS: Alveolar/Arterial O2 Gradient 270.7 mmHg; Base Excess ABG 7.8 mEq/l (+/-2.0); Fractional Inspired Oxygen 100 %; HCO3 ABG 34.9 mEq/l (22.0-26.0); Oxygen Saturation ABG 99.8 % (95.0-100.0); PCO2 ABG 58.9 mmHg (35.0-45.0); PO2 ABG 383.4 mmHg (80.0-100.0); PO2 FiO2 Ratio Arterial Blood 3.83 %; pH ABG 7.391 (7.350-7.450)
[2021-05-23 02:24] LABS: Device VENTILATOR; Site Drawn ARTLINE
[2021-05-23 02:25] LABS: Arterial Blood Gas PEEP 10 cmH2O; Arterial Blood Gas Tidal Volume 300 ml; Arterial Blood Gas Vent Mode CMV; Arterial Blood Gas Ventilator rate 20 /MIN
--- NOTE | 2021-05-23 02:25 | PC.NURSE ---
Pt maxed out on pressers. First unit of FFP infused when pt lost heart rate. CPR initiated. See code sheet.
[2021-05-23] MEDS: NOREPINEPHRINE 8 MG/D5W 250 ML 8 MG/250 ML BAG 56.25 MG IV CONT (02:48)
--- NOTE | 2021-05-23 02:53 | PC.NURSE ---
Spoke with impella rep post code. Advised to keep impella at P5 as long as impella is not alarming.
--- NOTE | 2021-05-23 03:22 | P.CODEBLUE_ITS ---
Code Blue Note Code Blue Note Time Arrived at Code Blue: 0201 Initial Rhythm on Arrival: PEA Airway Management: Airway (Patient already intubated) Chest Compressions: In process on arrival to bedside Cardiac Rhythm Post Code: Sinus rhythm Code Blue Summary: Code jose was called as the patient had loss of perfusing rhythm with asystole on art line and Impella device. Patient received 2 rounds of CPR 1 round of epinephrine with return of perfusing rhythm. Patient had already been receiving FFP and packed red blood cells due to DIC. Patient's care was discussed with family in detail at bedside. Patient was already maxed out on epinephrine, Milton-Synephrine, Levophed and vasopressin at the time of the code. Was discussed with family the patient is in multiorgan system failure and is improving despite our interventions. Repeat labs will be obtained after completion of blood transfusion. Prognosis: Extremely poor 30 minutes spent in critical care activities Due to a high probability of clinically significant, life threatening deterioration, the patient required my highest level of preparedness to interv rupali emergently and I personally spent this critical care time directly and personally managing the patient. This critical care time included obtaining a history; examining the patient; pulse oximetry; ordering and review of studies; arranging urgent treatment with development of a management plan; evaluation of patient's response to treatment; frequent reassessment; and discussions with other providers. It was exclusive of separately billable procedures and treating other patients and teaching time. Please see Assessment and Plan section and the rest of the note for further information on patient assessment and treatment.
[2021-05-23] MEDS: EPINEPHrine INJ 1 MG in DEXTROSE 5% IN WATER 250 ML 150.6 MG IV CONT (03:27)
[2021-05-23 04:20] LABS: Albumin Level 1.1 g/dL (3.5-5.1); Alkaline Phosphatase 23 U/L (38-126); Anion Gap 27 mmol/L (8-16); Bilirubin,Total 0.6 mg/dL (0.2-1.3); Blood Urea Nitrogen 25 mg/dL (7-17); Calcium 7.8 mg/dL (8.4-10.2); Carbon Dioxide 37 mmol/L (22-30); Chloride 85 mmol/L (98-107); Estimated CRCL calculation 29 ml/min; Estimated Glomerular Filt Rate 60; Glucose 460 mg/dL (65-110); Phosphorus 8.2 mg/dL (2.5-4.5); Sodium 149 mmol/L (137-145)
[2021-05-23 04:22] LABS: Total Protein < 2.0 g/dL (6.3-8.2)
[2021-05-23 04:44] LABS: Lactic Acid Reflex > 24.0 mmol/L (0.7-2.1)
[2021-05-23 04:45] LABS: INR 9.3; Prothrombin Time 71.9 Seconds (11.1-14.7)
[2021-05-23 04:46] LABS: Fibrinogen 70 mg/dl (215-510); Partial Thromboplastin Time 38.5 SECONDS (22.3-36.8)
[2021-05-23 04:47] LABS: Hematocrit 11.3 % (37.0-47.0); Hemoglobin 3.6 g/dL (12.0-15.0); Red Blood Count 1.21 M/mm3 (4.2-5.4); White Blood Count 3.9 K/mm3 (4.5-10.0)
[2021-05-23 04:48] LABS: Eosinophils Percent Auto 0.3 % (0-4.4); Lymphocytes Percent Auto 21.1 % (18.3-44.2); Mean Corpuscular HGB Conc 31.9 g/dl (32-36); Mean Corpuscular Hemoglobin 29.8 pg (26-34); Mean Corpuscular Volume 93.4 fl (80-100); Mean Platelet Volume 11.4 fl (7.4-10.4); Monocytes Percent Auto 4.6 % (2.6-8.5); Neutrophils Percent Auto 71.7 % (45.5-73.1); Nucleated Red Blood Cells Perc 4.3 % (0.0-0.2); Platelet Count Result 27 k/mm3 (150-375)
[2021-05-23 04:49] LABS: Immature Granulocyte Absolute 0.09 K/mm3 (0.00-0.031); Immature Granulocyte Percent A 2.3 % (0-0.5); Lymphocytes Absolute Auto 0.83 K/mm3 (0.9-3.2); Monocytes Absolute Auto 0.2 K/mm3 (0.1-0.6); Neutrophils Absolute Auto 2.8 K/mm3 (1.3-6.7); Nucleated Red Blood Cells Absolute Auto 0.2 K/mm3 (0.0-0.012)
--- NOTE | 2021-05-23 05:04 | P.CODEBLUE_ITS ---
Code Blue Note Code Blue Note Time Arrived at Code Blue: 0330 Initial Rhythm on Arrival: PEA Airway Management: Pt being bagged on arrival (With ET tube in place) Chest Compressions: In process on arrival to bedside Result of Code Blue: Pt Cardiac Rhythm Post Code: Asystole Code Blue Summary: Patient had 4th cardiac arrest in less than 24 hours. I arrived at bedside at 3:32 a.m.. CPR was in progress. Patient had already received amp of epinephrine. She was maxed out on Levophed, vasopressin, Milton- Synephrine and epinephrine. The patient was almost complete with her 2nd unit of packed red blood cell transfusion and was 1/[address] her 4th unit of FFP. The patient had received numerous bicarb boluses and had been placed on a bicarb drip. The patient received several doses of epinephrine and rounds of CPR. She also received several amps of calcium gluconate. Despite our best efforts after approximately 15 minutes resuscitation efforts the patient was in asystole. Labs obtained during code demonstrated lactic acid greater than 24, hemoglobin down to 3.6, despite transfusion hematocrit 11.3, INR 9.3, troponin of 24.6,fibrinogen, platelet count [id number]. LFTs were pending at the time of this dictation. I suspect the labs may have had some dilutional effect as they were obtained from the patient's art line. Cassette would suspect the patient's troponin what of remained higher given her multiple cardiac arrests. Also the patient's total protein and albumin were less than 1. Unfortunately there were no prior LFTs available for comparison 30 minutes spent in critical care activities. Due to a high probability of clinically significant, life threatening deterioration, the patient required my highest level of preparedness to intervene emergently and I personally spent this critical care time directly and personally managing the patient. This critical care time included obtaining a history; examining the patient; pulse oximetry; ordering and review of studies; arranging urgent treatment with development of a management plan; evaluation of patient's response to treatment; frequent reassessment; and discussions with other providers. It was exclusive of separately billable procedures and treating other patients and teaching time. Please see Assessment and Plan section and the rest of the note for further information on patient assessment and treatment.
[2021-05-23 07:12] LABS: Alanine Aminotransferase > 7500 U/L (4-35); Aspartate Amino Transferase > 3750 U/L (14-36)
--- NOTE | 2021-06-24 10:45 | P.DN_ITS ---
Discharge Summary Date and Time Date of : 05/23/21 Time of : 03:50 Provider Pronounced By: Dr. Bev Banks Probable Cause of Probable Cause of : cardiogenic shock with multiorgan failure Summary Hospital Course: this is a 85-year-old female was brought into the hospital with 2 week history of intermittent bilateral arm pain. Her troponins elevated 37, she was in a flutter with RVR. She had episode of unresponsive with associating CPR for few minutes and down in the emergency room. She got intubated after that because of pulmonary edema. She was rushed to the [facility] and we identified that the LAD was totally occluded at the ostium. Her ejection fraction is 15% with global hypokinesis. Poor collaterals from the RCA to the LAD. patient had PEA arrest again in the coreroom [facility] lab[facility] and has CPR for 5 minutes. she is not moving despite not giving any sedation now. we managed to open the LAD using stent 3 x 33 drug-eluting stent. we inserted an Impella and she was requiring Levophed at 15 mics. After transferred to the ICU patient started to require epinephrine, va sopressin, gypsy. she required also blood transfusion and FFP Because of DIC. She developed acute kidney injury with elevated potassium that was treated with insulin, glucose. She will had profound metabolic acidosis as well. Patient had 2 episodes of asystole and was resuscitated in 2 occasions however on the 2nd occasion she pronounced after The 2nd episode of asystole in the ICU Additional Data Confirmation of as documented by pronouncing clinician: Pupillary Reflex, Palpable Pulses, Response to Stimuli, Heart Tones and Breath Sounds Name of Provider Notified: Dr. Bev Banks Time Provider Notified: 03:50 Was code activated?: Yes Provider Requests Autopsy: No Family Requests Autopsy: No Machine Trimmer Notified: Yes Date [facility] Notified of : 05/23/21 Time [facility] Notified of : 04:11 Advance directives: No Hospice patient?: No
== END 2021-05-23 03:50 | disposition expired | DRG 215 ==
LOC: ANHED 13:54 → ANHICU 05-23 03:49
PROVIDERS: Emergency Medicine; Internal Medicine; Admitting Provider Internal Medicine Cardiovascular Disease; Emergency Provider Emergency Medicine; PCP Internal Medicine; Visit Provider Internal Medicine
PROC: 4A023N7 Measurement of Cardiac Sampling and Pressure, Left Heart, Percutaneous Approach (ICD-10-PCS; CPT 93452; principal; 2021-05-22 15:15)
PROC: 02HA3RZ Insertion of Short-term External Heart Assist System into Heart, Percutaneous Approach (ICD-10-PCS; 2021-05-22 15:15)
PROC: 5A2204Z Restoration of Cardiac Rhythm, Single (ICD-10-PCS; CPT 92950; 2021-05-22 15:15)
PROC: 02HA3RZ Insertion of Short-term External Heart Assist System into Heart, Percutaneous Approach (ICD-10-PCS; CPT 33979; 2021-05-22 15:15)
PROC: 02HA3RZ Insertion of Short-term External Heart Assist System into Heart, Percutaneous Approach (ICD-10-PCS; CPT 36140; 2021-05-22 15:15)
DX: I21.02 ST elevation (STEMI) myocardial infarction involving left anterior descending coronary artery (principal); D65 Disseminated intravascular coagulation [defibrination syndrome]; J96.00 Acute respiratory failure, unspecified whether with hypoxia or hypercapnia; K72.00 Acute and subacute hepatic failure without coma; N17.9 Acute kidney failure, unspecified; I48.92 Unspecified atrial flutter; R00.1 Bradycardia, unspecified; I46.2 Cardiac arrest due to underlying cardiac condition; R57.0 Cardiogenic shock; E87.5 Hyperkalemia; D64.9 Anemia, unspecified
CPT/HCPCS: 31500; 33990; 36140; 36415; 36430; 36600; 51702; 71275; 74177; 80048; 80053; 81001; 82375; 82805; 82948; 83050; 83605; 83735; 83880; 84100; 84484; 85025; 85055; 85380; 85384; 85610; 85730; 86850; 86900; 86901; 86920; 87086; 87088; 92950; 93005; 93458; 94002; 94003; 96361; 96374; 99291; A9270; C1725; C1751; C1769; C1874; C1887; C1894; C9606; J0171; J0461; J0583; J0610; J1644; J1815; J2370; J2704; J7030; J7060; J7070; J7120; P9016; P9017; Q9967